=== PATIENT | male | born 2000 | race Caucasian/White ===

== ENCOUNTER 2020-04-05 23:45 | Emergency (ER) | payer MEDICAID ==
[~2020-04-05] VITALS: Ht 177.8 cm; Wt 81.8 kg
[~2020-04-05 23:45] MED LIST: HYDR118S10 PO; NAPR500T6 PO
[2020-04-06] MEDS ORDERED: LIDOcaine/epinephrine/tetracaine TOPICAL sol 3 ML syringe TOP ONE (00:25)
[2020-04-06] MEDS ORDERED: bacitracin 15gm ointment TP ONE (00:25)
[2020-04-06] MEDS ORDERED: HYDROcodone/acetaminophen 5mg/325mg tablet PO ONE (00:45)
[2020-04-06] MEDS ORDERED: HYDR-4383 PO (00:57)
[2020-04-06] MEDS ORDERED: BACI1PAC7 TOP (01:03)
[2020-04-06 01:31] VITALS: BP 122/103
== END 2020-04-06 01:31 | disposition home or self-care (01) ==
LOC: ER 23:45
DX: S90.812A Abrasion, left foot, initial encounter (principal); R60.0 Localized edema; M79.672 Pain in left foot; F12.90 Cannabis use, unspecified, uncomplicated; F15.90 Other stimulant use, unspecified, uncomplicated; F11.90 Opioid use, unspecified, uncomplicated; Z72.89 Other problems related to lifestyle; Z79.899 Other long term (current) drug therapy; W22.8XXA Striking against or struck by other objects, initial encounter; Y93.02 Activity, running; Y92.89 Other specified places as the place of occurrence of the external cause; Y99.8 Other external cause status
CPT/HCPCS: 73610; 73630; 99284

== ENCOUNTER 2020-06-25 18:15 | Emergency (ER) | payer MEDICAID ==
[~2020-06-25] VITALS: Ht 175.3 cm; Wt 63.6 kg
[~2020-06-25 18:15] MED LIST changes: +HYDR-4383 PO
[2020-06-25 19:11] VITALS: BP 140/89
== END 2020-06-25 19:13 ==
LOC: ER 18:15
DX: S20.312A Abrasion of left front wall of thorax, initial encounter (principal); S30.810A Abrasion of lower back and pelvis, initial encounter; F12.90 Cannabis use, unspecified, uncomplicated; F15.90 Other stimulant use, unspecified, uncomplicated; Z79.899 Other long term (current) drug therapy; Y04.0XXA Assault by unarmed brawl or fight, initial encounter; Y92.89 Other specified places as the place of occurrence of the external cause; Y99.8 Other external cause status
CPT/HCPCS: 71045; 99283